=== PATIENT | female | born 1965 | race African-American/Black ===

== ENCOUNTER 2023-12-04 10:30 | Observation (INO) | payer BC ==
[2023-12-04 11:05] LABS: Absolute Eosinophils 0.3 K/uL (0-0.5); Absolute Lymphocytes (CBC) 1.6 K/uL (0.7-4.9); Basophils % 0.9 % (0-1.3); Eosinophils % 4.9 % (0-4.4); Hematocrit 36.2 % (36.0-45.0); Hemoglobin 12.5 g/dL (12.0-15.0); Lymphocytes % 30.4 % (15.3-44.8); MCV 84.1 fL (80-100); MPV 7.9 fL (7.6-11.3); Platelets 214 thou/uL (152-406)
[2023-12-04 11:08] LABS: Protime INR 1.04
[2023-12-04 11:20] LABS: Anion Gap 7.6 mEq/L (5.0-15.0); Magnesium 2.6 mg/dL (1.6-2.4); Potassium 3.6 mEq/L (3.5-5.1)
[2023-12-04 11:22] LABS: Troponin High Sensitivity 133.1 pg/mL (<58.9)
--- NOTE | 2023-12-04 11:36 | EDPHYS ---
Physician Documentation [facility] Name: Yanci Hernandez Age: 58 yrs Sex: Female : 1965 Arrival Date: 12/04/2023 Time: 10:30 Bed 20 Private MD: ED Physician Parth Teague HPI: 12/03 11:03 This 58 yrs old Female presents to ER via Ambulatory with complaints of Chest Pain. ms3 11:03 58-year-old female with past medical history of coronary artery disease, hypertension, ms3 hyperlipidemia presents to the emergency department after waking with chest pain at 6 AM. Patient states the pain is substernal and does not radiate. The pain is worse with movement. Patient denies alleviating factors. Patient denies nausea, vomiting, shortness of breath, diaphoresis.. Historical: - Allergies: 10:50 No Known Allergies; kd3 - Immunization history:: Adult Immunizations up to date. - Social history:: Smoking status: Patient denies any tobacco usage or history of. ROS: 11:03 Constitutional: Negative for fever, and chills. Neck: Negative for injury, pain, and ms3 swelling, 11:03 Respiratory: Negative for shortness of breath, cough, wheezing, and pleuritic chest pain, Abdomen/GI: Negative for abdominal pain, nausea, vomiting, diarrhea, and constipation, MS/Extremity: Negative for injury and deformity, Skin: Negative for injury, rash, and discoloration, 11:03 Cardiovascular: Positive for chest pain, Exam: 11:03 Constitutional: This is a well developed, well nourished patient who is awake, alert, ms3 and in no acute distress. Head/Face: Normocephalic, atraumatic. Chest/axilla: Normal chest wall appearance and motion. Nontender with no deformity. Cardiovascular: Regular rate and rhythm with a normal S1 and S2. No gallops, murmurs, or rubs. Normal PMI, no JVD. No pulse deficits. Respiratory: Lungs have equal breath sounds bilaterally, clear to auscultation and percussion. No rales, rhonchi or wheezes noted. No increased work of breathing, no retractions or nasal flaring. Abdomen/GI: Soft, non-tender, with normal bowel sounds. No distension or tympany. No guarding or rebound. No evidence of tenderness throughout. Skin: Warm, dry with normal turgor. Normal color with no rashes, no lesions, and no evidence of cellulitis. MS/ Extremity: Pulses equal, no cyanosis. Neurovascular intact. Full, normal range of motion. 11:03 ECG was reviewed by the Attending Physician. ms3 Vital Signs: 10:47 BP 117 / 95; Pulse 72; Resp 16; Temp 98.1(O); Pulse Ox 99% on R/A; Weight 90.72 kg; kd3 Height 5 ft. 4 in. ; 12:11 BP 108 / 63; Pulse 63; Resp 18; Pulse Ox 100% on R/A; me1 12:30 BP 114 / 64; Pulse 68; Resp 19; Pulse Ox 100% on R/A; me1 15:00 BP 127 / 70; Pulse 66; Resp 18; Pulse Ox 99% on R/A; me1 10:47 Body Mass Index 34.33 (90.72 kg, 162.56 cm) kd3 MDM: 11:03 Differential diagnosis: abnormal EKG, acute myocardial infarction, coronary artery ms3 disease chest wall pain. 11:16 Patient medically screened. ms3 11:33 The patient was not given aspirin in the Emergency Department. Patient reports taking [facility] aspirin within the past 24 hours. 11:34 ED course: Discussed elevated troponin with patient. Patient states her clinical application consultant is [facility] at [facility] in [place] and she would prefer transfer to [place]. Patient also notes she is not from [place] and her family is not nearby as if she were in [place]. 11:47 [facility]. Discussed this with patient and she is agreeable to [facility] staying at [facility] for her care.. 11:55 Data reviewed: vital signs, nurses notes, lab test result(s), EKG, radiologic studies, ms3 and as a result, I will admit patient. Consideration of Admission/Observation Patient was admitted/placed on observation. Management of patient was discussed with the following: Hospitalist: Dr Rosen. Real Estate Legal Assistant: Dr Ayala. I considered the following discharge prescriptions or medication management in the emergency department Medications were administered in the Emergency Department. See MAR. Independent interpretation of the following test(s) in the Emergency Department EKG: See my EKG interpretation above. Care significantly affected by the following chronic conditions: Hypertension, HLD. Counseling: I had a detailed discussion with the patient and/or guardian regarding the historical points, exam findings, and any diagnostic results supporting the discharge/admit diagnosis, lab results, the need for further work-up and treatment in the hospital. ED course: Case discussed with Dr Rosen and Dr Ayala. Dr Rosen accepts admission and Dr Ayala will consult. Discussed plan with patient. 12/03 10:33 Order name: Basic Metabolic Panel; Complete Time: 11:26 ms3 12/03 10:33 Order name: CBC with Diff; Complete Time: 11:26 ms3 12/03 10:33 Order name: Magnesium; Complete Time: 11: ms3 12/03 10:33 Order name: PT-INR; Complete Time: 11: ms3 12/03 10:33 Order name: Troponin HS; Complete Time: 11:26 ms3 12/03 12:05 Order name: Ptt, Activated me1 12/03 12:30 Order name: Basic Metabolic Panel EDMS 12/03 12:30 Order name: Basic Metabolic Panel EDMS 12/03 12:30 Order name: Basic Metabolic Panel EDMS 12/03 12:30 Order name: Basic Metabolic Panel EDMS 12/03 12:30 Order name: Basic Metabolic Panel EDMS 12/03 12:30 Order name: Basic Metabolic Panel EDMS 12/03 12:30 Order name: CBC with Automated Diff EDMS 12/03 12:30 Order name: CBC with Automated Diff EDMS 12/03 12:30 Order name: CBC with Automated Diff EDMS / 12:30 Order name: CBC with Automated Diff EDMS / 12:30 Order name: CBC with Automated Diff EDMS / 12:30 Order name: CBC with Automated Diff EDMS / 12:30 Order name: Lipid Profile EDMS 12/03 12:30 Order name: Lipid Profile EDMS 12/03 12:30 Order name: Troponin High Sensitivity EDMS 12/03 12:30 Order name: Troponin High Sensitivity EDMS 12/03 12:30 Order name: Troponin High Sensitivity EDMS 12/03 12:30 Order name: Troponin High Sensitivity EDMS 12/03 10:33 Order name: XRAY Chest (1 view) ms3 12/03 12:30 Order name: Echo with Doppler EDMS 12/03 13:27 Order name: RAD EDMS 12/03 10:33 Order name: EKG; Complete Time: 10:34 ms3 12/03 12:30 Order name: CONS Physician Consult EDNY 12/03 10:33 Order name: Cardiac monitoring; Complete Time: 11:36 ms3 12/03 10:33 Order name: EKG - Nurse/Tech; Complete Time: 10:50 ms3 12/03 10:33 Order name: IV Saline Lock; Complete Time: 11:00 ms3 12/03 10:33 Order name: Labs collected and sent; Complete Time: 11:00 ms3 12/03 10:33 Order name: O2 Per Protocol; Complete Time: 11:36 ms3 12/03 10:33 Order name: O2 Sat Monitoring; Complete Time: 11:36 ms3 EC:03 Rate is 69 beats/min. Rhythm is regular. Left axis deviation noted. ME interval is ms3 normal. Clinical impression: NSR w/ Non-specific ST/T Changes. Interpreted by me. Reviewed by me. Administered Medications: 10:41 CANCELLED (Already takenn): aspirinchewable tablet 324 mg PO once; 81 mg tablets x 4 ms3 11:37 Drug: Heparin (NH Drip) 12 units/kg/hr - ([place] [address] units, D5W IV 500 ml) IV at rs5 calculated rate Per protocol; Max initial rate 1000 units/hr {Co-Signature: cp4 (Adalgisa Gtz).} Route: IV; Rate: calculated rate; Site: right antecubital; 11:37 Drug: Heparin (NH-Bolus No thrombolytic) - HEParin IVP 60 units/kg IVP once; Max 5000 rs5 units {Co-Signature: cp4 (Adalgisa Gtz).} Route: IVP; Site: right antecubital; 12:07 Follow up: Response: No adverse reaction me1 Disposition: 11:48 Critical Care:. ms3 Disposition Summary: 12/04/23 11:55 Hospitalization Ordered Notes: Hospitalization Status: Inpatient Admission ms3 Provider: Marcello Rosen ms3 Location: Telemetry/[facility] (Inpatient) ms3 Condition: Stable(12/04/23 11:55) ms3 Problem: new(12/04/23 11:55) ms3 Symptoms: are unchanged(12/04/23 11:55) ms3 Bed/Room Type: Standard ms3 Room Assignment: ms3 Diagnosis - Subsequent non-ST elevation (NSTEMI) myocardial infarction(12/04/23 11:55) ms3 - Chest pain, unspecified(12/04/23 11:55) ms3 Forms: - Medication Reconciliation Form ms3 - SBAR form ms3 - Leadership Thank You Letter ms3 Critical care time excluding procedures: 11:48 Critical care time: Bedside Care: 30 minutes, Consultation: 5 minutes. Total time: 35 ms3 minutes Signatures: Dispatcher [employer] EDMS Parth Teague DO DO ms3 Heide Cotton RN RN kd3 Jaime Iverson RN RN rs5 Xiao Church RN me1 Adalgisa Gtz cp4 Corrections: (The following items were deleted from the chart) 10:41 10:33 Aspirin PO Chewable Tablet 324 mg PO once; 81 mg tablets x 4 ordered. ms3 ms3 11:47 11:36 ms3 ms3 11:47 11:36 [facility] ms3 ms3 11:47 11:36 Higher level of care ms3 ms3 11:47 11:36 Stable ms3 ms3 11:47 11:36 new ms3 ms3 11:47 11:36 are unchanged ms3 ms3 11:47 11:36 Subsequent non-ST elevation (NSTEMI) myocardial infarction ms3 ms3 11:47 11:36 Chest pain, unspecified ms3 ms3
--- NOTE | 2023-12-04 11:36 | ER ---
Nurse's Notes [facility] Name: Yanci Hernandez Age: 58 yrs Sex: Female : 1965 Arrival Date: 12/04/2023 Time: 10:30 Bed 20 Private MD: Diagnosis: Subsequent non-ST elevation (NSTEMI) myocardial infarction;Chest pain, unspecified Presentation: 12/03 10:47 Chief complaint: Patient states: I started having some mild chest pain this morning. It kd3 is constant and it stays in the middle of my chest. I do have a cardiac history so i came in to get checked out. It hurts more with movement. Coronavirus screen: Vaccine status: Patient reports receiving the 2nd dose of the covid vaccine. Ebola Screen: No symptoms or risks identified at this time. Initial Sepsis Screen: Does the patient meet any 2 criteria? No. Patient's initial sepsis screen is negative. Does the patient have a suspected source of infection? No. Patient's initial sepsis screen is negative. Risk Assessment: Do you want to hurt yourself or someone else? Patient reports no desire to harm self or others. Onset of symptoms was December 04, 2023. 10:47 Method Of Arrival: Ambulatory kd3 10:47 Acuity: PANKAJ 3 kd3 Triage Assessment: 10:50 General: Appears in no apparent distress. Behavior is calm, cooperative. Pain: kd3 Complains of pain in chest. Cardiovascular: Patient's skin is warm and dry. Historical: - Allergies: 10:50 No Known Allergies; kd3 - Immunization history:: Adult Immunizations up to date. - Social history:: Smoking status: Patient denies any tobacco usage or history of. Screenin:07 [facility] ED Fall Risk Assessment (Adult) History of falling in the last 3 months, me1 including since admission No falls in past 3 months (0 pts) Confusion or Disorientation No (0 pts) Intoxicated or Sedated No (0 pts) Impaired Gait No (0 pts) Mobility Assist Device Used No (0 pt) Altered Elimination No (0 pt) Score/Fall Risk Level 0 - 2 = Low Risk Maintained a safe environment, Provided non-skid footwear, Hourly rounding (assess needs \T\ fall precautionary measures) done. Abuse screen: Denies threats or abuse. Nutritional screening: No deficits noted. Tuberculosis screening: No symptoms or risk factors identified. Assessment: 11:37 Reassessment: pt arrived to room. rs5 15:08 Pain: me1 15:09 Pain: Pain began suddenly, this morning. me1 Vital Signs: 10:47 BP 117 / 95; Pulse 72; Resp 16; Temp 98.1(O); Pulse Ox 99% on R/A; Weight 90.72 kg; kd3 Height 5 ft. 4 in. ; 12:11 BP 108 / 63; Pulse 63; Resp 18; Pulse Ox 100% on R/A; me1 12:30 BP 114 / 64; Pulse 68; Resp 19; Pulse Ox 100% on R/A; me1 15:00 BP 127 / 70; Pulse 66; Resp 18; Pulse Ox 99% on R/A; me1 10:47 Body Mass Index 34.33 (90.72 kg, 162.56 cm) kd3 ED Course: 10:30 Patient arrived in ED. im 10:33 Parth Teague DO is Attending Physician. ms3 10:49 Triage completed. kd3 10:50 Arm band placed on right wrist. kd3 10:58 Initial lab(s) drawn, by me, sent to lab. Inserted saline lock: 20 gauge in right aa5 antecubital area, using aseptic technique. Blood collected. 11:35 initiated a transfer with Jean Carlos from the [facility] at the request of eb the patient. 11:[address] [facility] will have to decline the patient has been declined due eb to the facility being at capacity. 11:54 Marcello Rosen is Hospitalizing Provider. ms3 12:00 Client placed on continuous cardiac and pulse oximetry monitoring. NIBP monitoring me1 applied. ekg monitor tech on. Pulse ox on. NIBP on. 12:00 No provider procedures requiring assistance completed. Patient maintains SpO2 me1 saturation greater than 95% on room air. 12:05 Xiao Church, CYNTHIA is Primary Nurse. me1 12:07 Ptt, Activated Sent. me1 15:07 Patient has correct armband on for positive identification. Bed in low position. Call me1 light in reach. Side rails up X 1. Provided Education on: POV. Verbalized understanding. . 15:08 Patient admitted, IV remains in place. me1 Administered Medications: 10:41 CANCELLED (Already takenn): aspirinchewable tablet 324 mg PO once; 81 mg tablets x 4 ms3 11:37 Drug: Heparin (NC Drip) 12 units/kg/[place] - ([place] [address] units, D5W IV 500 ml) IV at rs5 calculated rate Per protocol; Max initial rate 1000 units/hr {Co-Signature: cp4 (Adalgisa Gtz).} Route: IV; Rate: calculated rate; Site: right antecubital; 11:37 Drug: Heparin (NC-Bolus No thrombolytic) - HEParin IVP 60 units/kg IVP once; Max 5000 rs5 units {Co-Signature: cp4 (Adalgisa Gtz).} Route: IVP; Site: right antecubital; 12:07 Follow up: Response: No adverse reaction me1 Medication: 15:08 VIS not applicable for this client. me1 Outcome: 11:36 ER care complete, transfer ordered by MD. ms3 11:55 Decision to Hospitalize by Provider. ms3 15:06 Admitted to [facility] accompanied by nurse, via stretcher, with chart, me1 15:06 Condition: stable 15:06 Instructed on the need for admit, 15:10 Patient left the ED. aa5 Signatures: Dee Freedman, RN RN aa5 Ann Burton Marcus, DO DO ms3 Heide Cotton, RN RN kd3 Jaime Iverson RN RN rs5 Andreia Kirkland Michelle, RN RN me1 Adalgisa Gtz cp4
[2023-12-04] MEDS ORDERED: HEPARIN/D5W 25,000 UNIT/500 ML BAG IV ONE (11:40)
[2023-12-04] MEDS ORDERED: HEPARIN 5000 UNIT/ML 1 ML VIAL ONE ×2 (11:40→15:16)
--- NOTE | 2023-12-04 12:20 | P.HP ---
Certification for Inpatient Patient admitted to: Observation With expected LOS: >2 Midnights Patient will require the following post-hospital care: None Practitioner: I am a practitioner with admitting privileges, knowledge of patient current condition, hospital course, and medical plan of care. Services: Services provided to patient in accordance with Admission requirements found in Title 42 Section 412.3 of the Code of Federal Regulations Patient History Date of Service: 12/04/23 Reason for admission: NSTEMI History of Present Illness: Yanci Hernandez is a 58-year-old female with past medical history of coronary artery disease, hypertension, hyperlipidemia, who presents to the ER with complaints of chest pain that began at 6 AM this morning. She reports the chest pain is substernal, does not radiate, no diaphoresis, nausea vomiting, or shortness of breath. She has a significant history of CAD with 2 stents and blood clots. 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 Initial vitals BP 117 / 95; Pulse 72; Resp 16; Temp 98.1(O); Pulse Ox 99% on R/A Laboratory evaluation with troponin 133.1, BUN/creatinine 14/1.13, GFR 56, sodium 136 Chest x-ray reports "findings suggestive of central congestive changes or early edema". Velma will be admitted to hospitalist service for further evaluation and treatment of chest pain, NSTEMI, Dr. Ayala has been consulted. Allergies No Known Allergies Allergy (Unverified 12/04/23 12:49) Review of Systems Cardiovascular: Chest Pain, Other (chest pressure) Physical Examination - Physical Exam General: Alert, In no apparent distress, Oriented x3 HEENT: Atraumatic, Normocephalic, PERRLA Neck: Supple, 2+ carotid pulse no bruit, JVD not distended Respiratory: Clear to auscultation bilaterally, Normal air movement Cardiovascular: No edema, Normal pulses, Regular rate/rhythm, Normal S1 S2 Capillary refill: <2 Seconds Gastrointestinal: Normal bowel sounds, Soft and benign, No tenderness Musculoskeletal: No swelling, No contractures Integumentary: No breakdown, No significant lesion, No tenderness/swelling Neurological: Normal speech, Normal strength at 5/5 x4 extr, Normal tone - Studies Laboratory Data (last 24 hrs) 12/04/23 12/04/23 12/04/23 10:58 10:58 10:58 WBC 5.30 Hgb 12.5 Hct 36.2 Plt Count 214 PT 11.4 INR 1.04 Sodium 136 Potassium 3.6 BUN 14 Creatinine 1.13 H Glucose 99 Magnesium 2.6 H Assessment and Plan - Plan Assessment and plan NSTEMI in patient with CAD Troponin 133.1, serial pending Chest x-ray reports "findings suggestive of central congestive changes or early edema." CTA Chest PE protocol- pending Heparin drip started in the ED, will continue on the floor Aspirin, statin daily Lipid panel, TSH/T4, A1c pending Nitroglycerin sublingual, morphine, Zofran as needed Dr. Ayala consulted- heart cath today Continuous Telemetry AYLIN BUN/creatinine 14/1.13, GFR 56 Monitor in a.m. labs History HTN/HLD Restart home medications DVT ppx heparin gtt Full code LOS 2 days Discharge Plan: Home Plan to discharge in: 48 Hours - Advance Directives Does patient have a Living Will: No Does patient have a Durable POA for Healthcare: No Time Spent Managing Pts Care (In Minutes): 50
[2023-12-04] MEDS ORDERED: ONDANSETRON 4 MG/2 ML VIAL IV PRN (12:23)
[2023-12-04] MEDS ORDERED: MORPHINE 4 MG/ML SYR IV PRN (12:23)
[2023-12-04] MEDS ORDERED: NITROGLYCERIN 0.4 MG/TAB SL PRN (12:23)
--- NOTE | 2023-12-04 13:27 | RAD REPORT ---
EXAM DESCRIPTION: Janelle Single View12/04/2023 1:04 pm CLINICAL HISTORY: CHEST PAIN COMPARISON: No comparisons TECHNIQUE: Portable AP view of the chest. FINDINGS: The lungs are clear apart from central interstitial prominence which may reflect central c ongestion/GB. No pneumothorax. Blunting of the right costophrenic angle may reflect a small effusion . Mitral clip is noted. The heart is mildly enlarged. Mediastinal contours are unremarkable. IMPRESSION: Findings suggestive of central congestive changes or early edema.
[2023-12-04] MEDS ORDERED: HEPARIN/D5W 25,000 UNIT/500 ML BAG IV SCH (14:00)
[2023-12-04] MEDS ORDERED: LIDOCAINE 1% 20 ML MDV ONE (15:15)
[2023-12-04] MEDS ORDERED: HEPA 1000U/500MLS 2,000 UNIT/1,000 ML BAG IV ONE (15:15)
[2023-12-04] MEDS: NA CHLORIDE 0.9% 500 ML ONE (15:15)
[2023-12-04] MEDS ORDERED: VERAPAMIL HCL 10 MG/4 ML VIAL IV ONE (15:16)
[2023-12-04] MEDS ORDERED: ATROPINE SULF 1 MG/10 ML SYR IV ONE (15:16)
[2023-12-04] MEDS ORDERED: FENTANYL CITR 100 MCG/2 ML ONE (15:16)
[2023-12-04] MEDS ORDERED: MIDAZOLAM HCL 2 MG/2 ML INJ ONE (15:16)
[2023-12-04] MEDS ORDERED: ASPIRIN 325 MG TAB ONE (15:17)
[2023-12-04] MEDS ORDERED: CLOPIDOGREL 75 MG TABLET ONE (15:17)
[2023-12-04] MEDS ORDERED: TICAGRELOR 90 MG TABLET PO ONE (15:17)
[2023-12-04] MEDS ORDERED: HEPARIN 10,000 UNIT/10 ML VIAL IV ONE (15:17)
[2023-12-04 15:36] VITALS: BMI 34.3
--- NOTE | 2023-12-04 19:33 | CON ---
Date of Consultation: 12/04/2023 Reason For Consultation: Chest pain with positive troponin. History Of Present Illness: A 58-year-old female, history of coronary artery disease, status post mu ltiple PCIs, hypertension, dyslipidemia, presented to the emergency room with chest pain, left-sided, started over this morning. Does not radiate. No diaphoresis, nausea, or vomiting. Pain comes and goes and at the present time, she is chest pain-free, has mild dyspnea on exertion as well. She has history of mitral valve regurgitation, status post mitral clip placement as per her report. Past Medical History: As outlined above in the HPI. Medications: Refer to reconciliation sheet for detailed list. Allergies: NO KNOWN DRUG ALLERGIES. Family History: No premature coronary artery disease or cancer. Social History: She does not smoke or drink. Does not use any drugs. Review of Systems: All systems reviewed and they were negative except as mentioned in the HPI. Physical Examination: Vital signs: Reviewed. Head and Neck: Pupils are equal, reactive to light. Intact eye movements. No JVD. No cervical lym phadenopathy. Neck is supple. Thyroid is not enlarged. Lungs: Clear to auscultation bilaterally. No rhonchi, rales, or crackles. No accessory muscle use. Heart: Regular rate and rhythm. No extra sounds. Abdomen: Soft, nontender. Bowel sounds positive. No organomegaly. No masses or hernia. No rigidi ty or rebound. Extremities: No edema, clubbing, cyanosis. Intact pulses. Skin: No rash. Neurologic: Alert, awake, oriented x3. No acute focal deficits appreciated. Investigations: Troponin 133, BUN 14, creatinine 1.1, and hemoglobin is 12.5. Assessment/recommendation: 1.Ygb-[id number] myocardial infarction. Has chest pain with positive troponin. No history of cor onary artery disease. Keep her n.p.o. Plan for coronary angiogram today and obtain an echocardiogra m. Continue baby aspirin and IV heparin until the cath is done. Use morphine sulfate for pain contr ol or nitroglycerin patch if the pain does not get controlled. 2.Hypertension. Blood pressure is controlled. Continue current management. 3.Dyslipidemia. Recommend Lipitor 40 mg at bedtime. SR/MODL Voice ID: [id number] Report ID: [id number]
[2023-12-04 19:34] LABS: Troponin High Sensitivity 116.3 pg/mL (<58.9)
--- NOTE | 2023-12-04 21:06 | OP ---
Date of Procedure: 12/04/2023 Surgeon: GRETCHEN ANDERSEN Procedures Performed: 1.Selective coronary angiogram. 2.Left heart catheterization. Indication: [id number] myocardial infarction. Access: Right radial artery 6-Macedonian closed with TR band. Complications: None. Bleeding: Less than 20 mL. Anesthesia: Total sedation time was 35 minutes. Description Of Procedure: After risks, benefits, and alternatives were explained, the patient agreed to procedure and signed informed consent. The patient was brought into the cardiac catheterization laboratory, prepped and draped in the usual sterile fashion. Then, I accessed right radial artery us ing pediatric micropuncture kit, placed a 6-Macedonian Slender sheath and took 5-Macedonian [place] 4.0 cathete r into the aortic root, engaged the left main, took standard views, and then in the RCA, took standar d views and catheter was pushed over the wire into the LV, measured the LVEDP. Pullback did not chapito rd any gradient. Then I removed the catheter and the sheath, placed TR band with good hemostasis. Findings: 1.Left main; large and long and normal. 2.LAD; it is moderate to large size vessel. Proximal segment is normal. Mid segment, there is a st ent that is widely patent. Distal LAD tapers down to become small, but with luminal irregularities, no disease, and diagonal branches appears to be normal. 3.Left circumflex; moderate-sized and normal. Normal OM branch. 4.RCA; large and dominant. It has mid 20% stenosis and then widely patent stent and then the PDA wi th luminal irregularities and PLB is normal. 5.LVEDP normal at 7 mmHg. Conclusion: 1.Widely patent LAD and the RCA stent. 2.Mild coronary artery disease elsewhere. Recommendations: Continue medical therapy and patient can be released from Cardiology standpoint if no other causes of chest pain were found. Recommend to look for pulmonary embolus. SR/MODL Voice ID: [id number] Report ID: [id number]
[2023-12-04 21:41] VITALS: O2SAT 98
[2023-12-04] MEDS: ACETAMINOPHEN 325 MG TABLET PO PRN (23:38)
[2023-12-05 02:57] LABS: Absolute Eosinophils 0.2 K/uL (0-0.5); Absolute Lymphocytes (CBC) 1.2 K/uL (0.7-4.9); Basophils % 0.9 % (0-1.3); Eosinophils % 4.2 % (0-4.4); Hematocrit 32.9 % (36.0-45.0); Hemoglobin 11.2 g/dL (12.0-15.0); Lymphocytes % 26.6 % (15.3-44.8); MCV 84.4 fL (80-100); Platelets 187 thou/uL (152-406); RBC Red Blood Cell Count 3.89 M/uL (3.86-4.86)
[2023-12-05 03:15] LABS: Anion Gap 9.9 mEq/L (5.0-15.0); Potassium 3.9 mEq/L (3.5-5.1)
--- NOTE | 2023-12-05 08:26 | RAD REPORT ---
EXAM DESCRIPTION: CT - Chest For Pe Angio - 12/05/2023 8:11 am CLINICAL HISTORY: Chest pain. Chest pain r/o PE COMPARISON: No comparisons TECHNIQUE: CT angiogram of the pulmonary arteries was performed with MIP. All CT scans are performed using dose optimization technique as appropriate and may include automated exposure control or mA/KV adjustment according to patient size. FINDINGS: No evidence of pulmonary thromboembolism. No acute aortic finding demonstrated. Ground-glass opacity is present bilaterally moderately severe. Cardiac size is prominent. Multiple poon bpleural/ perilymphatic nodules are present along with evidence of mediastinal and hilar lymphadenopa thy, nonspecific. No significant pericardial or pleural fluid. No concerning bony finding. IMPRESSION: No evidence of pulmonary thromboembolism. Numerous subpleural/perilymphatic nodules are present with mediastinal and hilar lymphadenopathy. Thi s is nonspecific but may be related to sarcoidosis. Moderate ground-glass opacity bilaterally suggest pulmonary edema.
[2023-12-05 09:07] VITALS: BP 104/55; TEMP 98.8
[2023-12-05] MEDS: ASPIRIN EC 81 MG TAB PO SCH (09:10)
--- NOTE | 2023-12-05 09:26 | P.PN ---
Date of Service: 12/05/23 Subjective ROS 10 point ROS as noted above, otherwise negative Physical Exam General: Alert, In no apparent distress, Oriented x3 HEENT: Atraumatic, Normocephalic, PERRLA Neck: Supple, 2+ carotid pulse no bruit, JVD not distended Respiratory: Clear to auscultation bilaterally, Normal air movement Cardiovascular: No edema, Normal pulses, Regular rate/rhythm, Normal S1 S2 Capillary refill: <2 Seconds Gastrointestinal: Normal bowel sounds, Soft and benign, No tenderness Musculoskeletal: No swelling, No contractures Integumentary: No breakdown, No significant lesion, No tenderness/swelling Neurological: Normal speech, Normal strength at 5/5 x4 extr, Normal tone Vitals Reviewed Problem list NSTEMI in patient with CAD AYLIN History HTN/HLD Assessment and Plan NSTEMI in patient with CAD Troponin 133.1, serial pending Chest x-ray reports "findings suggestive of central congestive changes or early edema." CTA Chest PE protocol- pending Heparin drip started in the ED, will continue on the floor Aspirin, statin daily Lipid panel, TSH/T4, A1c pending Nitroglycerin sublingual, morphine, Zofran as needed Dr. Ayala consulted- heart cath today Continuous Telemetry AYLIN BUN/creatinine 14/1.13, GFR 56 Monitor in a.m. labs History HTN/HLD Restart home medications DVT ppx heparin gtt Full code LOS 2 days Discharge Plan: Home Plan to discharge in: 48 Hours
--- NOTE | 2023-12-05 13:04 | P.DS ---
Admission Date: 12/04/23 Discharge Date: 12/06/23 Disposition: ROUTINE DISCHARGE Discharge Condition: FAIR Reason for Admission: NSTEMI Brief History of Present Illness: Diagnosis NSTEMI in patient with CAD AYLIN History HTN/HLD HPI 12/04/23 Yanci Hernandez is a 58-year-old female with past medical history of CAD (stents x2), hypertension, hyperlipidemia, who presents to the ER with complaints of chest pain that began at 6 AM this morning. She reports the chest pain is substernal, does not radiate, no diaphoresis, nausea vomiting, or shortness of breath. She has a significant history of CAD with 2 stents and blood clots. 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 Initial vitals BP 117 / 95; Pulse 72; Resp 16; Temp 98.1(O); Pulse Ox 99% on R/A Laboratory evaluation with troponin 133.1, BUN/creatinine 14/1.13, GFR 56, sodium 136 Chest x-ray reports "findings suggestive of central congestive changes or early edema". Velma will be admitted to hospitalist service for further evaluation and treatment of chest pain, NSTEMI, Dr. Ayala has been consulted. Hospital Course: Yanci Hernandez is a pleasant 58 with a past medical history significant for past medical history of CAD (stents x2), hypertension, hyperlipidemia, who was admitted to the [facility] on 12/04/23 for NSTEMI. Yanci Hernandez presented to the ED with chief complaint of chest pain. Lab resu lts revealed elevated troponin and a heparin gtt was started. Dr. Aguayo was consulted which he preformed a heart cath finding patent stents with no concerning stenosis at this time. Troponin level trended down and chest pain had resolved. AYLIN was noted on admission which has resolved. She has tolerated the heparin gtt, heart cath procedure, and is ambulating independently. She is tolerating PO diet, hemodynamically stable with a low blood pressure not requiring antihypertensives at this time. Education was provide for her to check her blood pressure before taking the antihypertensives and keep a record to update her PCP and assembler dielectric heater. Dr. Aguayo has cleared her stable for discharge. On 12/05/23, Yanci was seen on morning rounds and deemed medically stable for discharge. Yanci was discharged with instructions to schedule follow-up appointments with PCP and cardiology. No prescriptions this admission. The patient was given the opportunity to ask questions and reported no further questions. Furthermore, all questions were answered to the best of my ability. A copy of this discharge summary will be sent to the above providers to facilitate continuity of care. Today, I personally spent 50 minutes with Yanci, of which greater than 50% of the time was spent in patient education, counseling, and coordination of care as described above. Physical Exam General: AAox3, NAD, calm HEENT: Atraumatic, Normocephalic, PERRLA Neck: Supple, 2+ carotid pulse no bruit, JVD not distended Respiratory: Clear to auscultation bilaterally, Normal air movement Cardiovascular: No edema, Normal pulses, RRR, S1 S2 present, no murmur noted Capillary refill: <2 Seconds Gastrointestinal: Normaoactive bowel sounds, Soft and benign on palpation, ND/NT Musculoskeletal: No swelling, No contractures, 2+ peripheral pulses Integumentary: No breakdown, No significant lesion, No tenderness/swelling Neurological: Normal speech, Normal strength at 5/5 x4 extr, Normal tone Vital Signs/Physical Exam: Temp Pulse Resp BP Pulse Ox 98.8 F 66 15 104/55 L 99 12/05/23 08:00 12/05/23 08:00 12/05/23 08:00 12/05/23 08:00 12/05/23 08:00 Laboratory Data at Discharge: WBC 4.40 thou/uL (4.3-10.9) 12/05/23 02:31 Hgb 11.2 g/dL (12.0-15.0) L D 12/05/23 02:31 Hct 32.9 % (36.0-45.0) L 12/05/23 02:31 Plt Count 187 thou/uL (152-406) 12/05/23 02:31 PT 11.4 SECONDS (9.5-12.5) 12/04/23 10:58 INR 1.04 12/04/23 10:58 APTT 33.0 SECONDS (24.3-36.9) 12/04/23 10:58 Sodium 141 mEq/L (136-145) D 12/05/23 02:31 Potassium 3.9 mEq/L (3.5-5.1) 12/05/23 02:31 BUN 12 mg/dL (7-18) 12/05/23 02:31 Creatinine 1.01 mg/dL (0.55-1.02) 12/05/23 02:31 Glucose 106 mg/dL (74-106) 12/05/23 02:31 Magnesium 2.6 mg/dL (1.6-2.4) H 12/04/23 10:58 Triglycerides 119 mg/dL (<150) 12/04/23 18:52 Cholesterol 149 mg/dL (<200) 12/04/23 18:52 HDL Cholesterol 45 mg/dL (40-60) 12/04/23 18:52 Cholesterol/HDL Ratio 3.31 12/04/23 18:52 Home Medications: Aspirin Chewable [Aspirin Chewable*] 1 tab PO DAILY 12/05/23 Atorvastatin Calcium [Lipitor] 1 tab PO DAILY 12/05/23 Clopidogrel Bisulfate [Plavix*] 1 tab PO DAILY 12/05/23 Metoprolol Succinate [Toprol Xl*] 1 tab PO DAILY 12/05/23 Potassium Chloride [Klor-Con] 1 tab PO DAILY 12/05/23 Torsemide [Demadex*] 1 tab PO DAILY 12/05/23 lisinopriL [Lisinopril] 1 tab PO DAILY 12/05/23 Physician Discharge Instructions: Your blood pressure has been running low. You take 2 [id number] and metoprolol. You are advised to check you blood pressure before you take your blood pressure medications. Please do not take losartan or metoprolol if your systolic blood pressure is less than 110. Check your BP 4 hours later to see if the readings up to see if you can take them. Please do not take metoprolol if your heart rate is less than 60. Diet: AHA Activity: Ad megan Followup: VERO PHAM [Primary Care Provider] - Time spent managing pt's care (in minutes): 50
== END 2023-12-05 12:46 | disposition home or self-care (01) ==
LOC: ER 10:30 → ERHOLD 12:23 → 4TH 17:46
PROVIDERS: ADMIT Internal Medicine; ATTEND Internal Medicine
DX: I21.4 Non-ST elevation (NSTEMI) myocardial infarction (principal); I25.10 Atherosclerotic heart disease of native coronary artery without angina pectoris; N17.9 Acute kidney failure, unspecified; I10 Essential (primary) hypertension; E78.5 Hyperlipidemia, unspecified; Z95.5 Presence of coronary angioplasty implant and graft
CPT/HCPCS: 93005; 85025 ×2; 80048 ×2; 36415; 83735; 85610; 80061; 85347; 85730; 84484 ×3; 71275; 71045; 93458; 76937; 96374; 99285; Q9967; C1893; Q9966; J1644 ×2; J2001; J2250; J3010; J7040; G0378 ×4; 99152; 99153; J0461